=== PATIENT | female | born 1990 | race American Indian/Alaskan Native ===

== ENCOUNTER 2016-08-22 09:28 | Emergency (ER) | payer MEDICAID ==
[2016-08-22 09:45] VITALS: BP 116/82
--- NOTE | 2016-08-22 10:02 | Emergency Department Report ---
Chief Complaint: Abdominal Pain Stated Complaint: ABDOMINAL PAIN Time Seen by Provider: 08/22/16 10:02 - HPI History of Present Illness: Patient here complaining of abdominal pain and rectal pain that started last night. She said the pain is 10 out of 10 rectal pain feels like pressure and abdominal pain is cramping. Last menstrual period was June 2016. Denies any vaginal bleeding or discharge. Denies any urinary symptoms. Denies fever or chills. Patient is not cooperative in answering questions .. - ROS Review of Systems: All systems are negative unless stated in HPI above. - Exam Vital Signs: Vital Signs 08/22/16 08/22/16 09:44 09:52 Temperature 97.6 F 97.6 F Pulse Rate 82 82 Respiratory 18 Rate Blood Pressure 116/82 Blood Pressure 116/82 [Left] O2 Sat by Pulse 100 100 Oximetry Physical Exam: General: This is a 26-year-old female well-nourished well-developed. She appears to be in pain. CV: S1, S2. Regular rate and rhythm. Abdomen: Tender to palpate to lower abdominal quadrant with positive guarding and rebound tenderness. Normal bowel sounds. MSE screening note: Focused history and physical exam performed. Due to findings the following was ordered:see mdm ED Medical Decision Making - Medical Decision Making Medical decision making: Patient seen by provider in triage area. Appropriate protocol activated and patient to main ED to be seen by physician. ED Disposition for MSE Condition: Stable Instructions: Abdominal Pain (ED)
[2016-08-22 10:51] LABS: Basophils % (Auto) 0.3 % (0.0-1.8); Eosinophils % (Auto) 1.2 % (0.0-4.3); Hematocrit 40.3 % (30.3-42.9); Hemoglobin 12.7 gm/dl (10.1-14.3); Mean Corpuscular HGB Conc 32 % (30-34); Mean Corpuscular Volume 77 fl (79-97); Platelet Count 276 K/mm3 (140-440); Red Cell Distribution Width 14.1 % (13.2-15.2); White Blood Count 6.3 K/mm3 (4.5-11.0)
[2016-08-22 10:52] LABS: Mean Corpuscular Hemoglobin 24 pg (28-32)
[2016-08-22] MEDS ORDERED: ZOFRAN ODT PO ONE (10:52)
[2016-08-22 10:57] LABS: Bilirubin,Urine NEG (Negative); Blood,Urine NEG (Negative); Ketones,Urine 20 mg/dL (Negative); Leukocyte Esterase,Urine SM (Negative); Mucus,Urine 3+ /HPF; Nitrite,Urine NEG (Negative)
[2016-08-22 11:10] LABS: Alanine Aminotransferase 9 units/L (7-56); Albumin 4.4 g/dL (3.9-5); Albumin/Globulin Ratio 1.2 %; Alkaline Phosphatase 51 units/L (35-129); Amylase 86 units/L (27-131); Anion Gap 22 mmol/L; BUN/Creatinine Ratio 8.33; Bilirubin,Total 0.3 mg/dL (0.1-1.2); Blood Urea Nitrogen 5 mg/dL (7-17); Carbon Dioxide 20 mmol/L (22-30); Chloride 95.3 mmol/L (98-107); Glucose 120 mg/dL (65-100); Lipase 19 units/L (13-60); Potassium 3.4 mmol/L (3.6-5.0); Sodium 134 mmol/L (137-145)
== END 2016-08-22 11:00 | disposition left against medical advice (07) ==
LOC: ED 09:28
DX: R10.9 Unspecified abdominal pain (principal); R10.2 Pelvic and perineal pain; Z53.21 Procedure and treatment not carried out due to patient leaving prior to being seen by health care provider
CPT/HCPCS: 36415; 80053; 81001; 82150; 83690; 84703; 85025; Q0162

== ENCOUNTER 2016-08-22 12:44 | Emergency (ER) | payer MEDICAID ==
[2016-08-22] MEDS ORDERED: ROCEPHIN IM ONE (18:29)
[2016-08-22] MEDS ORDERED: XYLOCAINE 1% MPF 5 mL INFILTRATI ONE (18:29)
[2016-08-22] MEDS ORDERED: ZOFRAN ODT PO ONE (18:30)
--- NOTE | 2016-08-22 18:34 | Emergency Department Report ---
ED General Adult HPI - General Chief complaint: Abdominal Pain Stated complaint: ABD PAIN Source: patient, EMS Mode of arrival: Stretcher Limitations: No Limitations - History of Present Illness Initial comments: Patient complains of abdominal pain involving her pelvis all the way up to her lower chest. She states he's had this chronically. The mid-level provider states that she was brought into this facility from an empty apartment which just had a dance pole. The patient presented here earlier and eloped. She returned walking around the emergency department acting inappropriately. She Requesting to leave. She states he's had some nausea. She denies any recent fever or chills vaginal discharge or bleeding.she tells me she is going to go to her rn home care "tomorrow". Location: abdomen, pelvis Quality: aching Consistency: intermittent Improves with: none Worsens with: none Associated Symptoms: denies other symptoms - Related Data Previous Rx's Medication Instructions Recorded Last Taken Type Azithromycin [Zithromax ORAL PWDR] 1 gm PO ONCE #1 packet 08/22/16 Unknown Rx Nitrofurantoin [place]/M-Cryst 100 mg PO Q12HR #14 capsule 08/22/16 Unknown Rx [Macrobid CAP] Ondansetron [Zofran Odt] 4 mg PO Q6H #10 tab.rapdis 08/22/16 Unknown Rx Allergies Allergy/AdvReac Type Severity Reaction Status Date / Time No Known Allergies Allergy Unverified 01/29/16 17:36 ED Review of Systems ROS: Stated complaint: ABD PAIN Other details as noted in HPI Constitutional: denies: chills, fever Eyes: denies: eye pain, eye discharge, vision change ENT: denies: ear pain, throat pain Respiratory: denies: cough, shortness of breath, wheezing Cardiovascular: denies: chest pain, palpitations Endocrine: no symptoms reported Gastrointestinal: abdominal pain, nausea, other (longer complaining of rectal pain apparently mentioned this in triage) Genitourinary: denies: urgency, dysuria, discharge Musculoskeletal: denies: back pain, joint swelling, arthralgia Skin: denies: rash, lesions Neurological: denies: headache, weakness, paresthesias Psychiatric: denies: anxiety, depression Hematological/Lymphatic: denies: easy bleeding, easy bruising ED Past Medical Hx - Past Medical History Previous Medical History?: No - Surgical History Past Surgical History?: No - Social History Smoking Status: Never Smoker Substance Use Type: None - Medications Home Medications: Home Medications Medication Instructions Recorded Confirmed Last Taken Type Azithromycin [Zithromax ORAL PWDR] 1 gm PO ONCE #1 packet 08/22/16 Unknown Rx Nitrofurantoin [place]/M-Cryst 100 mg PO Q12HR #14 capsule 08/22/16 Unknown Rx [Macrobid CAP] Ondansetron [Zofran Odt] 4 mg PO Q6H #10 tab.rapdis 08/22/16 Unknown Rx ED Physical Exam - General Limitations: No Limitations General appearance: alert, in no apparent distress - Head Head exam: Present: atraumatic, normocephalic - Eye Eye exam: Present: normal appearance, PERRL, EOMI. Absent: scleral icterus - ENT ENT exam: Present: mucous membranes moist - Neck Neck exam: Present: normal inspection - Respiratory Respiratory exam: Present: normal lung sounds bilaterally. Absent: respiratory distress - Cardiovascular Cardiovascular Exam: Present: regular rate, normal rhythm. Absent: systolic murmur, diastolic murmur, rubs, gallop - GI/Abdominal GI/Abdominal exam: Present: soft, normal bowel sounds. Absent: distended, tenderness, guarding, rebound, rigid, organomegaly, mass, bruit, pulsatile mass , hernia - Extremities Exam Extremities exam: Present: normal inspection - Back Exam Back exam: Present: normal inspection. Absent: CVA tenderness (R), CVA tenderness (L) - Neurological Exam Neurological exam: Present: alert, oriented X3, CN II-XII intact. Absent: motor sensory deficit - Psychiatric Psychiatric exam: Present: agitated, anxious - Skin Skin exam: Present: warm, dry, intact, normal color, other (many tattoos). Absent: rash ED Course Vital Signs 08/22/16 13:06 Temperature 97.5 F L Pulse Rate 69 Respiratory 18 Rate Blood Pressure 114/78 [Right] O2 Sat by Pulse 100 Oximetry - Reevaluation(s) Reevaluation #1: Patient is given Zofran as she states she has nausea. She's given IM Rocephin. She states she will see her rn home care tomorrow. She is rather inappropriate. However her vital signs and labs do not suggest the presence of a significant medical conditionQuiring further emergency treatment. 08/22/16 18:35 Critical care attestation.: If time is entered above; I have spent that time in minutes in the direct care of this critically ill patient, excluding procedure time. ED Disposition Clinical Impression: UTI (urinary tract infection) Qualifiers: Urinary tract infection type: acute cystitis Hematuria presence: without hematuria Qualified Code(s): N30.00 - Acute cystitis without hematuria Disposition: DISCHARGED TO HOME OR SELFCARE Is pt being admited?: No Does the pt Need Aspirin: No Condition: Stable Instructions: Abdominal Pain (ED) Additional Instructions: See her rn home care for further evaluation. Rx as directed. Return any acute change as needed. Prescriptions: Azithromycin [Zithromax ORAL PWDR] 1 gm PO ONCE #1 packet Nitrofurantoin [place]/M-Cryst [Macrobid CAP] 100 mg PO Q12HR #14 capsule Ondansetron [Zofran Odt] 4 mg PO Q6H #10 tab.rapdis Referrals: PRIMARY CARE, [Primary Care Provider] - 3-5 Days Time of Disposition: 18:40
[2016-08-22 19:00] VITALS: BP 105/68
== END 2016-08-22 19:02 | disposition home or self-care (01) ==
LOC: ED 12:44
DX: N30.00 Acute cystitis without hematuria (principal)
CPT/HCPCS: 87086

== ENCOUNTER 2020-10-28 12:07 | Outpatient (CLI) | payer MEDICAID ==
[2020-10-28 12:41] VITALS: BP 123/67
[2020-10-28] MEDS ORDERED: TERBUTALINE 1 MG/1 ML INJ SUB-Q ONE ×2 (13:10→15:12)
[2020-10-28] MEDS ORDERED: LACTATED RINGERS 500 ML IV ONE (13:41)
== END 2020-10-28 15:32 | disposition home or self-care (01) ==
LOC: TRG 12:07 → APU 12:07 → TRG 15:32
PROVIDERS: ATTEND Obstetrics & Gynecology
DX: O47.03 False labor before 37 completed weeks of gestation, third trimester (principal); O99.323 Drug use complicating pregnancy, third trimester; F12.90 Cannabis use, unspecified, uncomplicated; Z3A.29 29 weeks gestation of pregnancy; Z87.891 Personal history of nicotine dependence
CPT/HCPCS: 59025; 96360; 96372; J3105; J7120

== ENCOUNTER 2020-10-30 23:48 | Inpatient (IN) | payer MEDICAID ==
[2020-10-31] MEDS ORDERED: DOCUSATE SODIUM 100 MG CAP PO PRN (00:10)
[2020-10-31] MEDS ORDERED: ACETAMINOPHEN 325 MG TAB PO PRN (00:10)
[2020-10-31] MEDS ORDERED: MAGNESIUM SULFATE 40GM/1000ML 40 GM/1,000 ML BAG IV SCH (00:13)
[2020-10-31] MEDS ORDERED: LACTATED RINGERS 1,000 ML IV SCH (00:15)
[2020-10-31] MEDS: AMPICILLIN/NS 1 GM/50 ML 1 GM/50 ML BAG IV SCH ×2 (02:08→07:55)
--- NOTE | 2020-10-31 05:19 | Event Note ---
Date: 10/31/20 Pt was admitted 10/30/2020, H&P and full set of ordered in EMR. Pt left AMA to pickup driver her 9 year old child with the understanding from the nursing staff that she could return to hospital and be readmitted. Per RN, CN and director said 9 year old child could stay with patient over night unaccompanied in labor and delivery.
--- NOTE | 2020-10-31 06:43 | History and Physical Report ---
History of Present Illness Date of examination: 10/31/20 Date of admission: 10/31/20 00:10 Chief complaint: pt left AMA and then returned to continue treatment. History of present illness: DC Calculations 01/11/2021 Past History : 3 Term Births: 1 Premature Births: 1 Living Children: 2 Para: 2 Mult. Births: 0 Prev : 0 Aborta: 0 Elect. Ab: 0 Spont. Ab: 0 Ectopics: 0 # 1 Delivery date: 06/23/2011 Weeks Gestation: Term labor: no Delivery type: Anesthesia type: epidural Delivery location: [facility] Infant Sex: Female Comments: No complications # 2 Delivery date: 05/14/2012 Weeks Gestation: 32 labor: yes Delivery type: Anesthesia type: epidural Delivery location: [facility] Infant Sex: Male Past Medical History: Reviewed history and no changes required: Negative Past Medical History Past Surgical History: Reviewed history and no changes required: negative Past Medical History Anesthesia Complications: negative Anemia: negative Autoimmune Disorder: negative Bleeding Disorder: negative Blood Transfusions: negative Breast Disease: negative Diabetes: negative Heart Disease: negative Hypertension: negative Hepatitis/Liver Disease: negative Kidney Disease/UTI: negative Neurologic/Epilepsy/Migraines: negative Phlebitis/Varicosities: negative Psychiatric: negative Pulmonary Disease/Asthma: negative Thyroid Disease: negative Hospitalizations: negative Surgery (Non-detonator maker): negative Abnormal PAP: negative IAM Exposure: negative Infertility: negative Uterine Anomaly: negative Uterine Surgery (not C/S): negative Other Gynecologic Problems: negative Family Hx: HTN: Grandmother Infection History Hx of STD: none HIV Risk Eval: low risk Hepatitis B Risk Eval: low risk Personal hx. of genital herpes: no Partner hx. of genital herpes: no Rash, Viral, or Febrile illness since last LMP? no Varicella/Chicken Pox Status: Previous Disease TB Risk: no Genetic History Congenital Heart Defect: Mom: no Dad: no Vicki Disease: Mom: no Dad: no Thalassemia Mom: no Dad: no Neural Tube Defect Mom: no Dad: no Down's Syndrome Mom: no Dad: no Aren-Sachs Mom: no Dad: no Sickle Cell Disease/Trait Mom: no Dad: no Hemophilia Mom: no Dad: no Muscular Dystrophy Mom: no Dad: no Cystic Fibrosis Mom: no Dad: no [place] Chorea Mom: no Dad: no Mental Retardation Mom: no Dad: no Fragile X Mom: no Dad: no Other Genetic/Chromosomal Disorder Mom: no Dad: no Child w/other defect Mom: no Dad: no Enviromental Exposures Enviromental Exposures Reviewed Xray Exposure: no Medication, drug, or alcohol use since LMP: no Chemical/Other Exposure: no Exposure to Cat Liter: no Hx of Parvovirus (Fifth Disease): no Occupational Exposure to Children: none Active Medications: None Past History Past Medical History: other (see HPI) Past Surgical History: other (see HPI) CHARACTER ACTRESS History: other (see HPI) - Obstetrical History : 3 Medications and Allergies Allergies Allergy/AdvReac Type Severity Reaction Status Date / Time No Known Allergies Allergy Verified 10/30/20 18:29 Home Medications Medication Instructions Recorded Confirmed Last Taken Type Nitrofurantoin [place]/M-Cryst 100 mg PO Q12HR #14 capsule 08/22/16 10/31/20 Unknown Rx [Macrobid CAP] Ondansetron [Zofran Odt] 4 mg PO Q6H #10 tab.rapdis 08/22/16 10/31/20 Unknown Rx RX: Azithromycin [Zithromax ORAL 1 gm PO ONCE #1 packet 08/22/16 10/31/20 Unknown Rx PWDR] Active Meds: Active Medications Acetaminophen (Acetaminophen 325 Mg Tab) 650 mg PO Q4H PRN PRN Reason: Pain MILD(1-3)/Fever >100.5/[place] Betamethasone Acet/Betameth SodPhos (Betamet Acet/Betamet Na Ph 6 Mg/Ml Inj 5 Ml Mdv) 12 mg IM ONCE ONE Stop: 10/31/20 19:31 Docusate Sodium (Docusate Sodium 100 Mg Cap) 100 mg PO Q12H PRN PRN Reason: Constipation Lactated Ringer's (Lactated Ringers) 1,000 mls @ 75 mls/hr IV DIRECT JUANA Last Admin: 10/31/20 03:15 Dose: 75 mls/hr Documented by: Ampicillin Sodium (Ampicillin/Ns 1 Gm/50 Ml) 1 gm in 50 mls @ 100 mls/hr IV Q4H JUANA; Protocol Last Admin: 10/31/20 02:08 Dose: 100 mls/hr Documented by: Magnesium Sulfate (Magnesium Sulfate 40gm/1000ml) 40 gm in 1,000 mls @ 50 mls/hr IV DIRECT JUANA Multivitamins/Iron/Calcium ( [id number] Fumarate-Folic Acid Vit Tab) 1 each PO QDAY JUANA Review of Systems All systems: negative - Vital Signs Vital signs: Vital Signs Pulse Pulse Ox 85 100 10/30/20 23:54 10/30/20 23:54 Temp Pulse Resp BP Pulse Ox 98.6 F 76 16 98/53 99 10/31/20 03:30 10/31/20 06:16 10/31/20 03:30 10/31/20 06:16 10/31/20 05:46 - Physical Exam Breasts: Positive: normal Cardiovascular: Regular rate Lungs: Positive: Normal air movement Abdomen: Positive: normal appearance, soft Results Abnormal lab results 10/31/20 Range/Units 05:48 Magnesium 6.20 H (1.7-2.3) mg/dL All other labs normal. Assessment and Plan Pt left AMA and then returned to continue treatment. this assessment note is from the original H&P constructed when patient was admitted: 30y/o @ 29+4, arrived to triage via EMS. She called the office at 1630 c/o "face swelling, hard for her to swallow, she is unable to eat. Pt states she feels like her throat is closing up and she feels like she has a mouth infection." She was advised to go to ED or urgent care regarding mouth care. She called the answering service 1 hour later with c/o contractions and mouth pain. She made comments that concerned the answering service regarding "needing the baby to come out" and "taking all the pills in the house if someone doesn't call me back." Pt arrived to triage pushing and bearing down. cervix closed and posterior, no vag bleeding or leaking fluid. Unable to fully assess contraction activity as patient continued to push and bear down. patient has hx of 32 weeks delivery so will admit and treat for labor with magnesium sulfate and steroids. NICU FUNERAL HOME MANAGER came to bedside to speak with patent in an attempt to get patient to stop pushing and patient would not speak to her. Will also get mental health consult as patient seems to have little concern if her baby is born prematurely. 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
--- NOTE | 2020-10-31 09:09 | Progress Note ---
Assessment and Plan A: 30 y.o. @ 29 + wks, labor. P: Will continue to monitor patient for s/sx of labor. Continue with magnesium until 730pm. To received second dose of steroids @ 730pm. Subjective - Subjective Date of service: 10/31/20 (Pt upset about answering service.) Principal diagnosis: IUP @ 29 wks Patient reports: movement normal, no new complaints, no loss of fluid, no vaginal bleeding, no contractions Objective - Vital Signs Vital Signs: Vital Signs - 12hr 10/30/20 10/30/20 10/31/20 23:54 23:59 00:00 Temperature 98.3 F Pulse Rate 85 89 Respiratory 18 Rate Blood Pressure O2 Sat by Pulse 100 100 Oximetry 10/31/20 10/31/20 10/31/20 00:04 00:09 00:14 Temperature Pulse Rate 84 75 80 Respiratory Rate Blood Pressure O2 Sat by Pulse 100 100 100 Oximetry 10/31/20 10/31/20 10/31/20 00:16 00:19 00:24 Temperature Pulse Rate 80 84 80 Respiratory Rate Blood Pressure 95/53 O2 Sat by Pulse 100 100 Oximetry 10/31/20 10/31/20 10/31/20 00:29 00:34 00:39 Temperature Pulse Rate 79 81 79 Respiratory Rate Blood Pressure O2 Sat by Pulse 100 100 99 Oximetry 10/31/20 10/31/20 10/31/20 00:44 00:49 00:54 Temperature Pulse Rate 79 86 83 Respiratory Rate Blood Pressure O2 Sat by Pulse 100 100 100 Oximetry 10/31/20 10/31/20 10/31/20 00:59 01:04 01:09 Temperature Pulse Rate 78 79 83 Respiratory Rate Blood Pressure O2 Sat by Pulse 100 100 100 Oximetry 10/31/20 10/31/20 10/31/20 01:11 01:14 01:16 Temperature Pulse Rate 83 78 Respiratory Rate Blood Pressure 104/55 O2 Sat by Pulse 83 L 100 Oximetry 10/31/20 10/31/20 10/31/20 01:19 01:24 01:29 Temperature Pulse Rate 78 79 82 Respiratory Rate Blood Pressure O2 Sat by Pulse 99 100 100 Oximetry 10/31/20 10/31/20 10/31/20 01:34 01:39 01:44 Temperature Pulse Rate 73 72 77 Respiratory Rate Blood Pressure O2 Sat by Pulse 100 100 99 Oximetry 10/31/20 10/31/20 10/31/20 01:49 01:54 01:59 Temperature Pulse Rate 79 78 78 Respiratory Rate Blood Pressure O2 Sat by Pulse 100 99 99 Oximetry 10/31/20 10/31/20 10/31/20 02:04 02:09 02:14 Temperature Pulse Rate 80 83 81 Respiratory Rate Blood Pressure O2 Sat by Pulse 99 99 99 Oximetry 10/31/20 10/31/20 10/31/20 02:16 02:19 02:24 Temperature Pulse Rate 71 78 76 Respiratory Rate Blood Pressure 94/50 O2 Sat by Pulse 100 100 Oximetry 10/31/20 10/31/20 10/31/20 02:29 02:34 02:39 Temperature Pulse Rate 75 77 76 Respiratory Rate Blood Pressure O2 Sat by Pulse 99 99 99 Oximetry 10/31/20 10/31/20 10/31/20 02:44 02:49 02:54 Temperature Pulse Rate 86 90 86 Respiratory Rate Blood Pressure O2 Sat by Pulse 99 99 99 Oximetry 10/31/20 10/31/20 10/31/20 02:59 03:04 03:09 Temperature Pulse Rate 81 90 89 Respiratory Rate Blood Pressure O2 Sat by Pulse 98 100 100 Oximetry 10/31/20 10/31/20 10/31/20 03:14 03:17 03:19 Temperature Pulse Rate 62 71 73 Respiratory Rate Blood Pressure 100/58 O2 Sat by Pulse 100 100 Oximetry 10/31/20 10/31/20 10/31/20 03:24 03:29 03:30 Temperature 98.6 F Pulse Rate 70 71 Respiratory 16 Rate Blood Pressure O2 Sat by Pulse 100 100 Oximetry 10/31/20 10/31/20 10/31/20 03:34 03:40 03:45 Temperature Pulse Rate 76 74 88 Respiratory Rate Blood Pressure O2 Sat by Pulse 100 100 100 Oximetry 10/31/20 10/31/20 10/31/20 03:50 03:55 04:00 Temperature Pulse Rate 71 76 85 Respiratory Rate Blood Pressure O2 Sat by Pulse 100 100 99 Oximetry 10/31/20 10/31/20 10/31/20 04:05 04:10 04:16 Temperature Pulse Rate 79 79 80 Respiratory Rate Blood Pressure 98/56 O2 Sat by Pulse 100 100 100 Oximetry 10/31/20 10/31/20 10/31/20 04:21 04:26 04:31 Temperature Pulse Rate 94 H 79 78 Respiratory Rate Blood Pressure O2 Sat by Pulse 100 100 100 Oximetry 10/31/20 10/31/20 10/31/20 04:36 04:41 04:46 Temperature Pulse Rate 76 77 77 Respiratory Rate Blood Pressure O2 Sat by Pulse 100 100 100 Oximetry 10/31/20 10/31/20 10/31/20 04:51 04:56 05:01 Temperature Pulse Rate 78 77 78 Respiratory Rate Blood Pressure O2 Sat by Pulse 100 100 100 Oximetry 10/31/20 10/31/20 10/31/20 05:06 05:11 05:16 Temperature Pulse Rate 76 71 72 Respiratory Rate Blood Pressure 96/56 O2 Sat by Pulse 100 100 100 Oximetry 10/31/20 10/31/20 10/31/20 05:21 05:26 05:31 Temperature Pulse Rate 77 76 77 Respiratory Rate Blood Pressure O2 Sat by Pulse 100 100 99 Oximetry 10/31/20 10/31/20 10/31/20 05:36 05:41 05:46 Temperature Pulse Rate 79 77 79 Respiratory Rate Blood Pressure O2 Sat by Pulse 99 99 99 Oximetry 10/31/20 10/31/20 10/31/20 06:16 07:16 07:55 Temperature Pulse Rate 76 78 78 Respiratory Rate Blood Pressure 98/53 97/50 O2 Sat by Pulse 100 Oximetry 10/31/20 10/31/20 10/31/20 08:00 08:05 08:10 Temperature 98.5 F Pulse Rate 82 80 82 Respiratory 18 Rate Blood Pressure O2 Sat by Pulse 100 100 100 Oximetry 10/31/20 10/31/20 10/31/20 08:15 08:17 08:20 Temperature Pulse Rate 86 87 82 Respiratory Rate Blood Pressure 131/87 O2 Sat by Pulse 100 99 Oximetry 10/31/20 10/31/20 10/31/20 08:25 08:30 08:35 Temperature Pulse Rate 88 85 82 Respiratory Rate Blood Pressure O2 Sat by Pulse 100 100 100 Oximetry 10/31/20 10/31/20 10/31/20 08:40 08:45 08:50 Temperature Pulse Rate 90 84 88 Respiratory Rate Blood Pressure O2 Sat by Pulse 100 100 100 Oximetry 10/31/20 10/31/20 10/31/20 08:55 09:00 09:05 Temperature Pulse Rate 78 82 85 Respiratory Rate Blood Pressure O2 Sat by Pulse 100 99 100 Oximetry - Exam Narrative Exam: Pt is very upset about answering service. States that they gave the business continuity analyst provider the wrong message. She also states that she would like to sign out AMA later on this afternoon. She has this fear that her daughter will be taken away. She does not want to talk to the social work assistant, but stated that she will speak with the psych team. We had a very long discussion about the role of the social work assistant in the hospital and that role was not taking her daughter away, but to make sure that her and her daughter are safe. Even after this lengthy discussion the patient states that she would like to leave AMA. Will sign the paper to leave AMA this afternoon. She denies vaginal bleeding, LOF, contractions. Breasts: deferred Cardiovascular: Regular rate Lungs: Normal air movement Abdomen: Present: normal appearance, soft FHR: category 1 Uterine Contraction Monitor Mode: External Uterine Contraction Pattern: Absent - Labs Labs: Abnormal Labs 10/31/20 05:48 Magnesium 6.20 H Laboratory Results - last 24 hr 10/31/20 05:48 Magnesium 6.20 H
[2020-10-31] MEDS ORDERED: PRENATAL VIT27-FE FUMARATE-FOLIC ACID VIT TAB PO SCH (10:00)
[2020-10-31 12:16] VITALS: BP 105/61
--- NOTE | 2020-10-31 13:31 | Event Note ---
Date: 10/31/20 (Pt left AMA) Went to room to speak with patient and she was not there. Was told by Charge Nurse that patient had signed out AMA.
[2020-10-31] MEDS ORDERED: BETAMET ACET/BETAMET NA PH 6 MG/ML INJ 5 ML MDV IM ONE (19:30)
== END 2020-10-31 12:20 | disposition left against medical advice (07) | DRG 778 ==
LOC: TRG 23:48 → LD 23:50 → TRG 10-31 00:10 → LD 10-31 00:10
PROVIDERS: ADMIT Obstetrics & Gynecology; ATTEND Obstetrics & Gynecology
DX: O60.03 Preterm labor without delivery, third trimester (principal); Z3A.29 29 weeks gestation of pregnancy; Z82.49 Family history of ischemic heart disease and other diseases of the circulatory system; Z79.899 Other long term (current) drug therapy; Z20.822 Contact with and (suspected) exposure to COVID-19
CPT/HCPCS: 36415; 83735; G0378; J0290; J7120; U0003

== ENCOUNTER 2020-11-17 15:38 | Outpatient (CLI) | payer MEDICAID ==
[2020-11-17] MEDS ORDERED: LACTATED RINGERS 500 ML IV ONE (16:01)
== END 2020-11-17 16:20 | disposition left against medical advice (07) ==
LOC: TRG 15:38 → APU 15:39 → TRG 16:20
PROVIDERS: ATTEND Obstetrics & Gynecology
DX: O47.00 False labor before 37 completed weeks of gestation, unspecified trimester (principal); Z3A.00 Weeks of gestation of pregnancy not specified
CPT/HCPCS: 36415; 84112

== ENCOUNTER 2020-12-06 09:38 | Outpatient (CLI) | payer MEDICAID ==
[2020-12-06 10:05] VITALS: BP 105/64
[2020-12-06] MEDS ORDERED: LACTATED RINGERS 1,000 ML IV ONE (10:58)
[2020-12-06 11:18] LABS: Bacteria,Urine 1+ /HPF (Negative); Bilirubin,Urine NEG (Negative); Blood,Urine NEG (Negative); Color,Urine Yellow (Yellow); Mucus,Urine FEW /HPF; Protein,Urine <15 mg/dL mg/dL (Negative)
--- NOTE | 2020-12-06 12:22 | Event Note ---
Date: 12/06/20 Pt states she would like some medication to help with her anxiety. She agrees to start zoloft QD. Pt also requesting some medication for constipation. rx colace sent. no active labor, no change in SVE. T cat 1. pt agrees with d/c home and will keep her next appointment.
== END 2020-12-06 12:17 | disposition home or self-care (01) ==
LOC: TRG 09:38 → APU 09:39 → TRG 12:17
PROVIDERS: ATTEND Obstetrics & Gynecology
DX: O99.613 Diseases of the digestive system complicating pregnancy, third trimester (principal); K62.89 Other specified diseases of anus and rectum; Z87.891 Personal history of nicotine dependence; Z3A.34 34 weeks gestation of pregnancy
CPT/HCPCS: 59025; 81001; 96360; J7120; Q0177

== ENCOUNTER 2020-12-23 10:00 | Inpatient (IN) | payer MEDICAID ==
[2020-12-23] MEDS ORDERED: ONDANSETRON 4 MG/2 ML INJ IV PRN (10:43)
[2020-12-23] MEDS ORDERED: AMPICILLIN/NS 2 GM/100 ML 2 GM/100 ML BAG IV ONE (10:43)
[2020-12-23] MEDS ORDERED: METHYLERGONOVINE MALEATE 0.2 MG/ML VIAL IM PRN (10:43)
[2020-12-23] MEDS ORDERED: CARBOPROST TROMETHAMINE 250 MCG/1 ML INJ IM PRN (10:43)
[2020-12-23] MEDS ORDERED: LIDOCAINE (2%) 20 MG/1 ML VIAL 20 ML MDV INFILTRATI NR (10:43)
[2020-12-23] MEDS ORDERED: miSOPROStol 200 MCG TAB PR PRN (10:43)
--- NOTE | 2020-12-23 10:51 | History and Physical Report ---
History of Present Illness Date of examination: 12/23/20 Chief complaint: "I'm in labor" History of present illness: EDC Calculations 01/11/2021 Past History : 3 Term Births: 2 Premature Births: 0 Living Children: 2 Para: 2 Mult. Births: 0 Prev : 0 Aborta: 0 Elect. Ab: 0 Spont. Ab: 0 Ectopics: 0 # 1 Delivery date: 06/23/2011 Weeks Gestation: Term labor: no Delivery type: Anesthesia type: epidural Delivery location: [facility] Infant Sex: Female Comments: No complications # 2 Delivery date: 05/14/2012 Weeks Gestation: 32 labor: yes Delivery type: Anesthesia type: epidural Delivery location: [facility] Infant Sex: Male Past Medical History: Reviewed history and no changes required: Negative Past Medical History Past Surgical History: Reviewed history and no changes required: negative Past Medical History Anesthesia Complications: negative Anemia: negative Autoimmune Disorder: negative Bleeding Disorder: negative Blood Transfusions: negative Breast Disease: negative Diabetes: negative Heart Disease: negative Hypertension: negative Hepatitis/Liver Disease: negative Kidney Disease/UTI: negative Neurologic/Epilepsy/Migraines: negative Phlebitis/Varicosities: negative Psychiatric: negative Pulmonary Disease/Asthma: negative Thyroid Disease: negative Hospitalizations: negative Surgery (Non-floor clerk): negative Abnormal PAP: negative IAM Exposure: negative Infertility: negative Uterine Anomaly: negative Uterine Surgery (not C/S): negative Other Gynecologic Problems: negative Family Hx: HTN: Grandmother Infection History Hx of STD: none HIV Risk Eval: low risk Hepatitis B Risk Eval: low risk Personal hx. of genital herpes: no Partner hx. of genital herpes: no Rash, Viral, or Febrile illness since last LMP? no Varicella/Chicken Pox Status: Previous Disease TB Risk: no Genetic History Congenital Heart Defect: Mom: no Dad: no Vicki Disease: Mom: no Dad: no Thalassemia Mom: no Dad: no Neural Tube Defect Mom: no Dad: no Down's Syndrome Mom: no Dad: no Aren-Sachs Mom: no Dad: no Sickle Cell Disease/Trait Mom: no Dad: no Hemophilia Mom: no Dad: no Muscular Dystrophy Mom: no Dad: no Cystic Fibrosis Mom: no Dad: no [place] Chorea Mom: no Dad: no Mental Retardation Mom: no Dad: no Fragile X Mom: no Dad: no Other Genetic/Chromosomal Disorder Mom: no Dad: no Child w/other defect Mom: no Dad: no Enviromental Exposures Enviromental Exposures Reviewed Xray Exposure: no Medication, drug, or alcohol use since LMP: no Chemical/Other Exposure: no Exposure to Cat Liter: no Hx of Parvovirus (Fifth Disease): no Occupational Exposure to Children: none Active Medications: None Current Allergies: No known allergies Past History Past Medical History: other (see HPI) Past Surgical History: other (see HPI) COURTESY BOOTH CASHIER History: other (see HPI) Family/Genetic History: other (see HPI) Social history: single, lives with family - Obstetrical History Expected Date of Delivery: 01/11/21 Actual Gestation: 37 Week(s) 2 Day(s) : 3 Para: 2 Hx # Term Pregnancies: 1 Number of Pregnancies: 1 Spontaneous Abortions: 0 Induced : 0 Number of Living Children: 2 Medications and Allergies Allergies Allergy/AdvReac Type Severity Reaction Status Date / Time No Known Allergies Allergy Verified 12/06/20 11:00 Home Medications Medication Instructions Recorded Confirmed Last Taken Type Nitrofurantoin [place]/M-Cryst 100 mg PO Q12HR #14 capsule 08/22/16 12/06/20 12/05/20 Rx [Macrobid CAP] Ondansetron [Zofran Odt] 4 mg PO Q6H #10 tab.rapdis 08/22/16 12/06/20 12/05/20 09:00 Rx Docusate Sodium [Colace] 100 mg PO BID PRN #60 capsule 12/06/20 Unknown Rx Vitamin 1 tab PO DAILY 12/06/20 12/06/20 12/05/20 09:00 History Sertraline [Zoloft] 50 mg PO QDAY #30 tablet 12/06/20 Unknown Rx Active Meds: Active Medications Butorphanol Tartrate (Butorphanol 2 Mg/1 Ml Inj) 1 mg IV Q2H PRN PRN Reason: Pain, Moderate(4-6) LABOR PAIN Ephedrine Sulfate (Ephedrine Sulfate 50 Mg/1 Ml Inj) 10 mg IV Q2M PRN PRN Reason: Hypotension Fentanyl (Fentanyl 100 Mcg/2 Ml Inj) 100 mcg IV Q2H PRN PRN Reason: Pain,Severe (7-10) LABOR PAIN Oxytocin/Sodium Chloride (Pitocin/Ns 30 Unit/500ml) 30 units in 500 mls @ 4 mls/hr IV TITR JUANA; Protocol Lactated Ringer's (Lactated Ringers) 1,000 mls @ 125 mls/hr IV DIRECT JUANA Oxytocin/Sodium Chloride (Pitocin/Ns 30 Unit/500ml) 30 units in 500 mls @ 40 mls/hr IV TITR JUANA; Protocol Ampicillin Sodium (Ampicillin/Ns 2 Gm/100 Ml) 2 gm in 100 mls @ 100 mls/hr IV ONCE ONE; Protocol Stop: 12/23/20 11:42 Ampicillin Sodium (Ampicillin/Ns 1 Gm/50 Ml) 1 gm in 50 mls @ 100 mls/hr IV Q4H JUANA; Protocol Mineral Oil (Mineral Oil 30 Ml Oral Liqd) 30 ml PO QHS PRN PRN Reason: Constipation Ondansetron HCl (Ondansetron 4 Mg/2 Ml Inj) 4 mg IV Q8H PRN PRN Reason: Nausea And Vomiting Oxytocin (Oxytocin 10 Unit/1 Ml Inj) 10 unit IM ONCE PRN PRN Reason: Uterine Bleeding Terbutaline Sulfate (Terbutaline 1 Mg/1 Ml Inj) 0.25 mg SUB-Q ONCE PRN PRN Reason: Hyperstimulation/Hypertonicity Review of Systems All systems: negative - Physical Exam Breasts: Positive: normal Cardiovascular: Regular rate Lungs: Positive: Normal air movement Abdomen: Positive: normal appearance, soft Genitourinary (Female): Positive: normal external genitalia, normal perenium Vulva: both: normal Vagina: Positive: normal moisture Uterus: Positive: normal size Anus/Rectum: Positive: normal perianal skin Extremities: Positive: normal Deep Tendon Reflex Grade: Hyperactive,very brisk +4 - Obstetrical FHR: category 1 Uterine Contraction Monitor Mode: External Cervical Dilatation: 3 Uterine Contraction Pattern: Regular Uterine Tone Measurement Phase: Contraction Uterine Contraction Intensity: Moderate Results Result Diagrams: 12/23/20 12:00 All other labs normal. Assessment and Plan 30y/o @ 37+2w, Admitted for SROM. GBS +; Admission orders in EMR. - Patient Problems (1) SROM (spontaneous rupture of membranes) Current Visit: Yes Status: Acute Plan to address problem: nursing staff to do teamp q2h limit SVE Pitocin augmentation PRN (2) 37 weeks gestation of Current Visit: Yes Status: Acute (3) Positive GBS test Current Visit: Yes Status: Acute Plan to address problem: Ampicillin q4hrs until delivery
[2020-12-23] MEDS ORDERED: OXYTOCIN 10 UNIT/1 ML INJ IM PRN (11:00)
[2020-12-23] MEDS ORDERED: fentaNYL 100 MCG/2 ML INJ IV PRN (11:00)
[2020-12-23] MEDS ORDERED: TERBUTALINE 1 MG/1 ML INJ SUB-Q PRN (11:00)
[2020-12-23] MEDS ORDERED: OXYTOCIN DRIP 30 UNITS/500 ML BAG IV SCH ×2 (11:00)
[2020-12-23] MEDS ORDERED: BUTORPHANOL 2 MG/1 ML INJ IV PRN (11:00)
[2020-12-23] MEDS ORDERED: ePHEDrine SULFATE 50 MG/1 ML INJ IV PRN (11:00)
[2020-12-23 12:15] LABS: Hematocrit 33.2 % (30.3-42.9); Hemoglobin 10.6 gm/dl (10.1-14.3); Mean Corpuscular HGB Conc 32 % (30-34); Mean Corpuscular Volume 77 fl (79-97); Platelet Count 329 K/mm3 (140-440); Red Blood Count 4.29 M/mm3 (3.65-5.03); Red Cell Distribution Width 15.2 % (13.2-15.2)
[2020-12-23] MEDS: LACTATED RINGERS 1,000 ML IV SCH ×2 (12:22→15:58)
--- NOTE | 2020-12-23 14:28 | Anesthesia Consultation ---
Anesthesia Consult and Med Hx Date of service: 12/23/20 - Airway Anesthetic Teeth Evaluation: Good ROM Head & Neck: Adequate Mental/Hyoid Distance: Adequate Mallampati Class: Class II Intubation Access Assessment: Probably Good - Pulmonary Exam CTA: Yes - Cardiac Exam Cardiac Exam: RRR - Pre-Operative Health Status ASA Pre-Surgery Classification: ASA2 Proposed Anesthetic Plan: Epidural - Pulmonary Hx Smoking: Yes Hx Asthma: No COPD: No Hx Pneumonia: No - Cardiovascular System Hx Hypertension: No - Central Nervous System Hx Seizures: No Hx Psychiatric Problems: No - Endocrine Hx Renal Disease: No Hx End Stage Renal Disease: No Hx Hypothyroidism: No Hx Hyperthyroidism: No - Hematic Hx Anemia: No Hx Sickle Cell Disease: No - Other Systems Hx Alcohol Use: No
[2020-12-23] MEDS ORDERED: NALOXONE 2 MG/2 ML INJ IV PRN (14:29)
--- NOTE | 2020-12-23 14:29 | Progress Note ---
Labor Epidural - Labor Epidural Start Time: 14:16 Stop Time: 14:25 Performed by:: GABRIELE BUSH Procedure: Patient is requesting epidural for labor pain. H&P, and labs reviewed. Procedure explained, questions answered, consent obtained. Patient in sitting position with blood pressure cuff and pulse ox on and working. Timeout performed immediately before start of procedure. Sterile chlorahexadine 0.5% prep/drape. 3 mL 1% lidocaine skin wheal at L[3]-L[4]. 18-gauge Tuohy epidural needle advanced to [id number]-[id number]-ictsodwimb with saline at [7] cm. Epidural catheter advanced to [12] cm, negative aspiration for blood and csf, negative test dose 3 ml 1.5% lidocaine with epinephrine. Epidural dexmedetomidine [30] mcg administered. Sterile steri-strips and tegaderm applied, followed by tape reinforcement. Patient tolerated procedure well. Gabriele KILLIAN
[2020-12-23] MEDS ORDERED: fentaNYL-BUPIV 2 MCG/ML-0.125% 200 MCG/100 ML BAG EPIDURAL SCH (15:00)
[2020-12-23] MEDS: ePHEDrine SULFATE 50 MG/1 ML INJ IV PRN ×2 (15:00→15:03)
[2020-12-23] MEDS ORDERED: AMPICILLIN/NS 1 GM/50 ML 1 GM/50 ML BAG IV SCH (15:00)
--- NOTE | 2020-12-23 15:38 | Progress Note ---
Assessment and Plan called by rn r/t decels in FHT. b/p noted to be 100/58. patient received 3 doses of ephedrine and b/p's increased. FHT stabilized + accels and variability. Attempted to placed IUPC, uncomplictaed placement. Small bleeding noted and IUPC not functioning - removed. ISE placed and working well. Dr. lacey updated. - Patient Problems (1) SROM (spontaneous rupture of membranes) Current Visit: Yes Status: Acute (2) 37 weeks gestation of Current Visit: Yes Status: Acute (3) Positive GBS test Current Visit: Yes Status: Acute Subjective - Subjective Date of service: 12/23/20 Principal diagnosis: IUP 37+2; SROM 0900, s/p epidural Interval history: EDC Calculations 01/11/2021 Past History : 3 Term Births: 2 Premature Births: 0 Living Children: 2 Para: 2 Mult. Births: 0 Prev : 0 Aborta: 0 Elect. Ab: 0 Spont. Ab: 0 Ectopics: 0 # 1 Delivery date: 06/23/2011 Weeks Gestation: Term labor: no Delivery type: Anesthesia type: epidural Delivery location: [facility] Infant Sex: Female Comments: No complications # 2 Delivery date: 05/14/2012 Weeks Gestation: 32 labor: yes Delivery type: Anesthesia type: epidural Delivery location: [facility] Infant Sex: Male Past Medical History: Reviewed history and no changes required: Negative Past Medical History Past Surgical History: Reviewed history and no changes required: negative Past Medical History Anesthesia Complications: negative Anemia: negative Autoimmune Disorder: negative Bleeding Disorder: negative Blood Transfusions: negative Breast Disease: negative Diabetes: negative Heart Disease: negative Hypertension: negative Hepatitis/Liver Disease: negative Kidney Disease/UTI: negative Neurologic/Epilepsy/Migraines: negative Phlebitis/Varicosities: negative Psychiatric: negative Pulmonary Disease/Asthma: negative Thyroid Disease: negative Hospitalizations: negative Surgery (Non-optometric technician): negative Abnormal PAP: negative IAM Exposure: negative Infertility: negative Uterine Anomaly: negative Uterine Surgery (not C/S): negative Other Gynecologic Problems: negative Family Hx: HTN: Grandmother Infection History Hx of STD: none HIV Risk Eval: low risk Hepatitis B Risk Eval: low risk Personal hx. of genital herpes: no Partner hx. of genital herpes: no Rash, Viral, or Febrile illness since last LMP? no Varicella/Chicken Pox Status: Previous Disease TB Risk: no Genetic History Congenital Heart Defect: Mom: no Dad: no Vicki Disease: Mom: no Dad: no Thalassemia Mom: no Dad: no Neural Tube Defect Mom: no Dad: no Down's Syndrome Mom: no Dad: no Aren-Sachs Mom: no Dad: no Sickle Cell Disease/Trait Mom: no Dad: no Hemophilia Mom: no Dad: no Muscular Dystrophy Mom: no Dad: no Cystic Fibrosis Mom: no Dad: no [place] Chorea Mom: no Dad: no Mental Retardation Mom: no Dad: no Fragile X Mom: no Dad: no Other Genetic/Chromosomal Disorder Mom: no Dad: no Child w/other defect Mom: no Dad: no Enviromental Exposures Enviromental Exposures Reviewed Xray Exposure: no Medication, drug, or alcohol use since LMP: no Chemical/Other Exposure: no Exposure to Cat Liter: no Hx of Parvovirus (Fifth Disease): no Occupational Exposure to Children: none Active Medications: None Current Allergies: No known allergies Patient reports: no new complaints Objective - Vital Signs Vital Signs: Vital Signs - 12hr 12/23/20 12/23/20 12/23/20 11:05 11:07 12:05 Temperature 98.3 F Pulse Rate 78 78 76 Respiratory 14 Rate Blood Pressure 112/56 Blood Pressure 112/56 [Right] O2 Sat by Pulse 98 Oximetry 12/23/20 12/23/20 12/23/20 12:10 12:15 12:20 Temperature Pulse Rate 76 78 75 Respiratory Rate Blood Pressure 100/50 Blood Pressure [Right] O2 Sat by Pulse 98 99 99 Oximetry 12/23/20 12/23/20 12/23/20 12:25 12:28 12:30 Temperature Pulse Rate 72 80 Respiratory 18 Rate Blood Pressure 100/56 Blood Pressure [Right] O2 Sat by Pulse 98 99 Oximetry 12/23/20 12/23/20 12/23/20 12:35 12:40 12:45 Temperature Pulse Rate 87 79 85 Respiratory Rate Blood Pressure Blood Pressure [Right] O2 Sat by Pulse 99 98 98 Oximetry 12/23/20 12/23/20 12/23/20 12:50 12:55 13:00 Temperature Pulse Rate 67 71 74 Respiratory Rate Blood Pressure Blood Pressure [Right] O2 Sat by Pulse 99 99 98 Oximetry 05/07/0512/23/20 12/23/20 13:05 13:08 13:10 Temperature Pulse Rate 73 63 73 Respiratory Rate Blood Pressure 102/58 Blood Pressure [Right] O2 Sat by Pulse 100 99 Oximetry 12/23/20 12/23/20 12/23/20 13:15 13:20 13:25 Temperature Pulse Rate 80 71 64 Respiratory Rate Blood Pressure Blood Pressure [Right] O2 Sat by Pulse 99 100 99 Oximetry 12/23/20 12/23/20 12/23/20 13:27 13:30 13:35 Temperature Pulse Rate 71 88 Respiratory 22 Rate Blood Pressure Blood Pressure [Right] O2 Sat by Pulse 100 99 Oximetry 12/23/20 12/23/20 12/23/20 13:37 13:40 13:45 Temperature Pulse Rate 82 84 76 Respiratory Rate Blood Pressure 108/70 Blood Pressure [Right] O2 Sat by Pulse 100 100 Oximetry 12/23/20 12/23/20 12/23/20 13:50 13:55 14:00 Temperature Pulse Rate 94 H 110 H 94 H Respiratory Rate Blood Pressure Blood Pressure [Right] O2 Sat by Pulse 99 100 100 Oximetry 12/23/20 12/23/20 12/23/20 14:11 14:13 14:18 Temperature Pulse Rate 72 93 H 79 Respiratory Rate Blood Pressure 115/69 Blood Pressure [Right] O2 Sat by Pulse 75 L 100 100 Oximetry 12/23/20 12/23/20 12/23/20 14:23 14:24 14:26 Temperature Pulse Rate 84 79 78 Respiratory Rate Blood Pressure 108/62 110/68 Blood Pressure [Right] O2 Sat by Pulse 100 Oximetry 12/23/20 12/23/20 12/23/20 14:28 14:30 14:33 Temperature Pulse Rate 74 66 67 Respiratory Rate Blood Pressure 117/77 114/64 126/59 Blood Pressure [Right] O2 Sat by Pulse 87 93 Oximetry 12/23/20 12/23/20 12/23/20 14:35 14:37 14:38 Temperature Pulse Rate 75 69 64 Respiratory Rate Blood Pressure 113/59 101/65 100/63 Blood Pressure [Right] O2 Sat by Pulse 100 Oximetry 12/23/20 12/23/20 12/23/20 14:40 14:42 14:43 Temperature Pulse Rate 68 68 68 Respiratory Rate Blood Pressure 100/57 96/55 Blood Pressure [Right] O2 Sat by Pulse 99 Oximetry 12/23/20 12/23/20 12/23/20 14:45 14:47 14:48 Temperature Pulse Rate 88 66 71 Respiratory Rate Blood Pressure 102/66 102/59 100/58 Blood Pressure [Right] O2 Sat by Pulse 100 Oximetry 12/23/20 12/23/20 12/23/20 14:53 14:58 15:02 Temperature Pulse Rate 73 64 82 Respiratory Rate Blood Pressure 91/55 93/56 Blood Pressure [Right] O2 Sat by Pulse 100 100 Oximetry 12/23/20 12/23/20 12/23/20 15:03 15:05 15:08 Temperature Pulse Rate 79 71 92 H Respiratory Rate Blood Pressure 97/56 96/58 Blood Pressure [Right] O2 Sat by Pulse 100 100 Oximetry 12/23/20 12/23/20 12/23/20 15:10 15:12 15:13 Temperature Pulse Rate 61 86 79 Respiratory Rate Blood Pressure 101/53 121/63 Blood Pressure [Right] O2 Sat by Pulse 100 Oximetry 12/23/20 12/23/20 12/23/20 15:14 15:16 15:18 Temperature Pulse Rate 60 109 H 82 Respiratory Rate Blood Pressure 121/63 106/54 124/64 Blood Pressure [Right] O2 Sat by Pulse 100 Oximetry 12/23/20 12/23/20 12/23/20 15:20 15:22 15:23 Temperature Pulse Rate 79 85 78 Respiratory Rate Blood Pressure 125/70 128/69 Blood Pressure [Right] O2 Sat by Pulse 100 Oximetry 12/23/20 12/23/20 12/23/20 15:24 15:26 15:28 Temperature Pulse Rate 91 H 61 61 Respiratory Rate Blood Pressure 121/71 127/80 Blood Pressure [Right] O2 Sat by Pulse 100 Oximetry - Exam Cardiovascular: Regular rate Lungs: Normal air movement Abdomen: Present: normal appearance, soft Vulva: both: normal Uterus: Present: normal, fundal height above umbilicus FHR: category 2 Uterine Contraction Monitor Mode: External Cervical Dilatation: 4.5 Cervical Effacement Percentage: 70 station: -2 Uterine Contraction Frequency (min): 3 Uterine Contraction Duration: 60 Uterine Contraction Pattern: Regular Uterine Tone Measurement Phase: Contraction Uterine Contraction Intensity: Moderate Extremities: normal - Labs Labs: Abnormal Labs 12/23/20 12:00 WBC 11.1 H MCV 77 L MCH 25 L Laboratory Results - last 24 hr 12/23/20 12/23/20 12/23/20 12:00 12:00 12:00 WBC 11.1 H RBC 4.29 Hgb 10.6 Hct 33.2 MCV 77 L MCH 25 L MCHC 32 RDW 15.2 Plt Count 329 Syphilis IgG Antibody Nonreactive Blood Type A POSITIVE Antibody Screen Negative
[2020-12-23] MEDS ORDERED: MINERAL OIL 30 ML ORAL LIQD ONE (19:13)
--- NOTE | 2020-12-23 20:09 | Procedure Note ---
OB Delivery Note - Delivery Date of Delivery: 12/23/20 ( Male) Early Childhood Associate Teacher: FELIX DUPREE ([facility]) Estimated blood loss: 200cc - Vaginal Delivery presentation: vertex Delivery position: OA (JAN) Intrapartum events: PROM->1hr before delivery Delivery induction: none Delivery augmentation: pitocin Delivery monitor: external FHT, internal FHT Route of delivery: Delivery placenta: spontaneous Delivery cord: 3 umbilical vessels Episiotomy: none Delivery laceration: none Anesthesia: epidural Delivery comments: Male infant born over intact perineum, pt denied skin to skin with bay at time of . Infant handed off to DASH nurse. 3 vessel cord clamped and cut. placenta del intact and complete. No lacerations to repair. EBL 300. baby wt 5#10oz, apgars 8/9. mother and LDR stable. all counts correct. - Infant A at 1 minute: 8 at 5 minutes: 9 (5#10) Gender: Male
[2020-12-23] MEDS ORDERED: MINERAL OIL 30 ML ORAL LIQD PO PRN (22:00)
[2020-12-23] MEDS ORDERED: WITCH HAZEL/ GLYCERIN PAD TP PRN (22:53)
[2020-12-23] MEDS ORDERED: BENZOCAINE/MENTHOL 20/0.5% TOP SPRAY 56 GM TP PRN (22:53)
[2020-12-23] MEDS ORDERED: PROMETHAZINE 25 MG TAB PO PRN (22:53)
[2020-12-23] MEDS ORDERED: MAGNESIUM HYDROXIDE (MOM) ORAL LIQD UDC PO PRN (22:53)
[2020-12-23] MEDS ORDERED: diphenhydrAMINE 25 MG CAP PO PRN (22:53)
[2020-12-23] MEDS ORDERED: LANOLIN/ZINC/DIMETHICONE (LANSINOH) 7 GM TP PRN (22:53)
[2020-12-23] MEDS: IBUPROFEN 800 MG TAB PO SCH (23:42)
[2020-12-24] MEDS: FERROUS SULFATE 325 MG TAB PO SCH ×2 (00:47→09:29)
[2020-12-24] MEDS: DOCUSATE SODIUM 100 MG CAP PO SCH ×2 (00:47→09:29)
[2020-12-24] MEDS: IBUPROFEN 800 MG TAB PO SCH ×3 (05:09→17:45)
[2020-12-24 08:23] LABS: Hematocrit 30.8 % (30.3-42.9); Hemoglobin 10.1 gm/dl (10.1-14.3)
[2020-12-24] MEDS ORDERED: PRENATAL VIT27-FE FUMARATE-FOLIC ACID VIT TAB PO SCH (10:00)
[2020-12-24] MEDS ORDERED: ACETAMINOPHEN 500 MG TAB PO PRN (10:05)
--- NOTE | 2020-12-24 10:06 | Discharge Summary ---
Providers - Providers Date of Admission: 12/23/20 10:43 Date of discharge: 12/24/20 (Pt desires to go home. ) Attending physician: REGINA KIRK 12/23/20 22:53 Consult to Case Management [CONS] Routine Services Needed at Discharge: Extrusion Supervisor Comment:: assess support system, hx DFACS open case (unsure if it is still open) Primary care physician: REGINA KIRK Hospitalization Reason for admission: active labor Delivery: Episiotomy: none Laceration: none Other procedures: none complications: none Discharge diagnosis: IUP at term delivered [place] baby: male Hospital course: S: Pt doing well. Voiding, ambulating, and passing flatus without difficulty. BC: BTL with salpingectomy. O: VSS. Fundus firm, minimal bleeding noted. H/H 10.1/30.8. A: 30 y.o. s/p @ term. In good condition and can be discharged home. P: Discharge home with instructions. Pt to schedule a visit in the office in 4 weeks. Condition at discharge: Good Disposition: DC-01 TO HOME OR SELFCARE Plan - Discharge Medications Prescriptions: Lidocain2.5%/Prilocai2.5% [Emla] 5 gm TP ONCE PRN #1 tube PRN Reason: Pain Ibuprofen [Motrin 800 MG tab] 800 mg PO Q8HR PRN #30 tablet PRN Reason: Pain - Provider Discharge Summary Activity: routine, no sex for 6 weeks, no heavy lifting 4 weeks, no strenuous exercise Diet: routine Instructions: routine Additional instructions: [] Smoking cessation referral if applicable(refer to patient education folder for contact #) [] Refer to [facility] Booklet Call your doctor immediately for: * Fever > 100.5 * Heavy vaginal bleeding ( >1 pad per hour) * Severe persistent headache * Shortness of breath * Reddened, hot, painful area to leg or breast * Drainage or odor from incision. * Keep incision clean and dry at all times and follow doctor's instructions regarding bathing/showering Congratulations on your baby boy! Please schedule a visit in the office in 4 weeks. Please schedule your son's circumcision appointment in 1 week. You have been prescribed EMLA cream. Please do not use this cream at home, but bring it with you to your son's circumcision appointment. If you have any questions or concerns after discharge, please do not hesitate to call the office at [phone]. - Follow up plan Follow up: REGINA KIRK MD [Primary Care Provider] - 7 Days
--- NOTE | 2020-12-24 14:37 | Post Anesthesia Evaluation ---
- Post Anesthesia Evaluation Patient Participated: Yes Airway Patent: Yes Stable Respiratory Function: Yes Nausea/Vomiting: No Temp > 96.8F: Yes Pain Manageable: Yes Adequeate Hydration: Yes Anesthesia Complications: No Block Receding Appropriately: Yes
--- NOTE | 2020-12-24 16:50 | Event Note ---
Date: 12/24/20 (Pt has strong desire to go ome. ) Called to room to speak with patient regarding infant discharge. Was told by rn discharge that infant will need 24 hour testing at 743pm and if his bilirubin is high he will have to stay. I went to speak with the patient and we discussed policy for discharging infant per and rn discharge. We discussed if the baby's bilirubin is high, he will need to phototherapy. Pt verbalized understanding but states that if the infant is not cleared for discharge, she will sign out against medical advice. She stated "Y'all can call DFACS or do whatever you have to do, but I'm going home with my baby. I will sign the AMA papers that y'all need me to sign, but I am not leaving without my baby." This message was relayed to the rn discharge and RN taking care of the patient. toll operator and RN will call me if patient signs baby out AMA.
[2020-12-24 17:38] VITALS: BP 109/52
== END 2020-12-24 20:30 | disposition home or self-care (01) | DRG 775 ==
LOC: TRG 10:00 → APU 10:01 → LD 10:43 → TRG 10:43 → LD 12:00 → OB 22:22
PROVIDERS: ADMIT Obstetrics & Gynecology; ATTEND Obstetrics & Gynecology
PROC: 10E0XZZ Delivery of Products of Conception, External Approach (ICD-10-PCS; principal; 2020-12-23)
PROC: 3E0R3BZ Introduction of Anesthetic Agent into Spinal Canal, Percutaneous Approach (ICD-10-PCS; 2020-12-23)
PROC: 00HU33Z Insertion of Infusion Device into Spinal Canal, Percutaneous Approach (ICD-10-PCS; 2020-12-23)
DX: O99.824 Streptococcus B carrier state complicating childbirth (principal); O42.90 Premature rupture of membranes, unspecified as to length of time between rupture and onset of labor, unspecified weeks of gestation; Z20.822 Contact with and (suspected) exposure to COVID-19; Z3A.37 37 weeks gestation of pregnancy; Z37.0 Single live birth
CPT/HCPCS: 36415; 59025; 85014; 85018; 85027; 86592; 86850; 86900; 86901; G0378; J0290; J2590; J3010; J7120; U0003